=== PATIENT | female | born 1965 | race African-American/Black ===

== ENCOUNTER 2016-12-14 17:41 | Emergency (ER) | payer BC, OTHER ==
[~2016-12-14] VITALS: Ht 167.6 cm; Wt 58.0 kg
[~2016-12-14 17:41] MED LIST: 1-ME1LIQ PO; ALBU6.7H INH; ATOR80TA PO; BACT800T5 PO; BUPR-175 PO; DARU800T PO; FERR324T4 PO; FLON0.053; HIVPAK; HYDR50 PO; LISI-360 PO; MEGE20TA PO; METO10TA PO; NAPR250T57 PO; PENI500T PO; POTA-243 PO; PRED50 PO; PROT40TA PO; REME15TA PO; RITO100 PO; TRUV200300
[2016-12-14 17:44] VITALS: BP 112/64; PULSE 89; RESP 15; TEMP 102.4; O2SAT 98
[2016-12-14 18:06] VITALS: BP 117/62; PULSE 97; RESP 22; O2SAT 99
--- NOTE | 2016-12-14 18:09 | PD ---
HPI Chief Complaint: Fever Time Seen by Provider: 18:01 Travel History International Travel<30 days: No Contact w/Intl Traveler<30days: No Traveled to known affect area: No History of Present Illness HPI Is a 51-year-old male who has a history of HIV with last CD4 count over 600 who presents to the emergency department with 3 days of fever, constant, severe, associated with cough with some clear sputum production. She denies any rhinorrhea, sore throat, body aches, vomiting, diarrhea or abdominal pain. She has no headache or neck pain. She's not had any sick contacts. PFSH Past Medical History Asthma: Yes Blood Disorders: No Anxiety: Yes Depression: Yes Heart Rhythm Problems: No Cancer: No Cardiovascular Problems: Yes (congenital heart murmur) High Cholesterol: Yes Chemotherapy: No Chest Pain: No Congestive Heart Failure: No COPD: No Diabetes: No Diminished Hearing: No Endocrine: Yes (Thyroid Mass) Gastrointestinal Disorders: Yes Genitourinary: Yes Hepatitis: No Hiatal Hernia: No Hypertension: Yes Immune Disorder: Yes (HIV) Musculoskeletal: Yes Neurologic: No Psychiatric: Yes Reproductive: Yes Respiratory: No ( ) Immunizations Current: No Radiation Therapy: No Sleep Apnea: No Thyroid Disease: Yes ( ) ?: Not : 2 Para: 2 Past Surgical History Abdominal Surgery: Yes (TUMOR ON SMALL INTESTINE) AICD: Yes Body Medical Devices: defiblilator Cardiac Surgery: Yes (AICD INSERTION) Endocrine Surgery: Yes (THYROIDECTOMY) Gynecologic Surgery: Yes (HYSTERECTOMY) Hysterectomy: Yes Pacemaker: No Other Surgery: Yes Social History Alcohol Use: No Tobacco Use: No Substance Use: No Allergies-Medications (Allergen,Severity, Reaction): Coded Allergies: Aspirin (Verified Allergy, Intermediate, HIVES, 12/14/16) Reported Meds & Prescriptions Reported Meds & Active Scripts Active Reported Remeron (Mirtazapine) 15 Mg Tab 15 Mg PO HS Atorvastatin (Atorvastatin Calcium) 80 Mg Tab 80 Mg PO HS Lisinopril 10 Mg Tab 10 Mg PO DAILY Prezista (Darunavir) 800 Mg Tab 800 Mg PO DAILY Truvada (Emtricitabine-Tenofovir Disoproxil Fumarate) 200-300 Mg Tab 1 Tab PO DAILY Norvir (Ritonavir) 100 Mg Cap 300 Mg PO DAILY Review of Systems Except as stated in HPI: all other systems reviewed are Neg Physical Exam Narrative GENERAL:Well appearing, no acute distress SKIN: Warm and dry. HEAD: Atraumatic. Normocephalic. EYES: Pupils equal and round. No injection or drainage. ENT: Moist mucous membranes NECK: Trachea midline. No meningismus. CARDIOVASCULAR: Regular rate and rhythm. No murmur appreciated. RESPIRATORY: Clear to auscultation. Breath sounds equal bilaterally. GASTROINTESTINAL: Abdomen soft, non-tender, nondistended. MUSCULOSKELETAL: No obvious deformities. NEUROLOGICAL: Awake and alert. No obvious cranial nerve deficits. Moving all extremities. PSYCHIATRIC: Poor eye contact and flat affect. Data Data Last Documented VS Vital Signs Date Time Temp Pulse Resp B/P Pulse Ox O2 Delivery O2 Flow Rate FiO2 12/14/16 18:06 97 22 117/62 99 Room Air 12/14/16 17:44 102.4 Orders Complete Blood Count With Diff (12/14/16 18:07) Comprehensive Metabolic Panel (12/14/16 18:07) ^ Insert Iv (12/14/16 18:07) Influenzae A/B Antigen (12/14/16 18:07) Chest, Single Ap (12/14/16 ) Urinalysis - C+S If Indicated (12/14/16 18:07) Ketorolac Inj (Toradol Inj) (12/14/16 18:15) Sodium Chlor 0.9% 1000 Ml Inj (Ns 1000 M (12/14/16 18:15) Acetaminophen (Tylenol) (12/14/16 19:00) Labs Laboratory Tests Test 12/14/16 18:20 White Blood Count 5.6 TH/MM3 Red Blood Count 3.98 MIL/MM3 Hemoglobin 12.4 GM/DL Hematocrit 37.5 % Mean Corpuscular Volume 94.2 FL Mean Corpuscular Hemoglobin 31.1 PG Mean Corpuscular Hemoglobin 33.0 % Concent Red Cell Distribution Width 13.9 % Platelet Count 158 TH/MM3 Mean Platelet Volume 9.6 FL Neutrophils (%) (Auto) 60.3 % Lymphocytes (%) (Auto) 27.5 % Monocytes (%) (Auto) 11.6 % Eosinophils (%) (Auto) 0.1 % Basophils (%) (Auto) 0.5 % Neutrophils # (Auto) 3.4 TH/MM3 Lymphocytes # (Auto) 1.6 TH/MM3 Monocytes # (Auto) 0.7 TH/MM3 Eosinophils # (Auto) 0.0 TH/MM3 Basophils # (Auto) 0.0 TH/MM3 CBC Comment DIFF FINAL Differential Comment MDM Medical Decision Making Medical Screen Exam Complete: Yes Emergency Medical Condition: Yes Interpretation(s) Fever of 102.4 No leukocytosis Monocytic shift Influenza positive Chest x-ray: No acute process Differential Diagnosis Influenza, pneumonia, urinary tract infection Narrative Course This is a 51-year-old female who is HIV positive with a CD4 count of 600 presents to the emergency department with fever and cough. She was placed on a monitor and an IV was established. She was given Toradol and acetaminophen as well as IV fluids. Chest x-ray was reassuring with no evidence of pneumonia. Patient had a positive flu test. She will be discharged home with antivirals. Diagnosis Primary Impression: Influenza A Patient Instructions: General Instructions Additional Instructions: If you develop severe chest pain, shortness of breath, sweating, lightheadedness , dizziness or difficulty breathing return to the emergency department immediately. Followup with your primary care physician in 2-3 days if your symptoms are not resolved. Med/Other Pt SpecificInfo: Prescription(s) given Scripts Oseltamivir (Tamiflu)75 Mg Cap75 Mg PO BID 5 Days Ref 0 Prov:Corina Nye MD 12/14/16 Disposition: 01 DISCHARGE HOME Condition: Stable Corina Nye MD Dec 14, 2016 18:09
[2016-12-14] MEDS ORDERED: KETOROLAC TROMETHAMINE 30 MG/ML (IVP) VIAL IV PUSH ONE (18:15)
[2016-12-14] MEDS ORDERED: SODIUM CHLOR 0.9% 1000 ML INJ 1,000 ML IV ONE (18:15)
[2016-12-14 18:36] LABS: AUTOMATED NEUTROPHIL # 3.4 TH/MM3 (1.8-7.7); BASOPHIL % 0.5 % (0.0-2.0); EOSINOPHIL % 0.1 % (0.0-4.0); HEMATOCRIT 37.5 % (35.0-46.0); HEMO FLAGS DIFF FINAL; LYMPH % 27.5 % (9.0-44.0); LYMPHOCYTE # 1.6 TH/MM3 (1.0-4.8); MEAN CELL VOLUME 94.2 FL (80.0-100.0); MEAN CORPUSCULAR HEMOGLOBIN 31.1 PG (27.0-34.0); MONO % 11.6 % (0.0-8.0); NEUT % 60.3 % (16.0-70.0); PLATELET COUNT 158 TH/MM3 (150-450); RED BLOOD COUNT 3.98 MIL/MM3 (4.00-5.30); RED CELL DISTRIBUTION WIDTH 13.9 % (11.6-17.2); WHITE BLOOD COUNT 5.6 TH/MM3 (4.0-11.0)
[2016-12-14] MEDS ORDERED: LISI10TA3 PO (18:37)
[2016-12-14] MEDS ORDERED: DARU800T PO (18:37)
[2016-12-14] MEDS ORDERED: EMTR1TAB PO (18:37)
[2016-12-14] MEDS ORDERED: REME15TA PO (18:37)
[2016-12-14] MEDS ORDERED: ATOR1TAB18 PO (18:37)
[2016-12-14] MEDS ORDERED: RITO100 PO (18:37)
--- NOTE | 2016-12-14 18:39 | RADRPT ---
EXAM DATE/TIME: 12/14/2016 18:18 [facility] COMPARISON: CHEST SINGLE AP, July 15, 2015, 14:25. INDICATIONS : Fever with shortness of breath, cough, and congestion. MEDICAL HISTORY : Asthma. Bronchitis. SURGICAL HISTORY : Pacemaker. ENCOUNTER: Initial ACUITY: 3 days PAIN SCORE: 0/10 LOCATION: Bilateral chest FINDINGS: A single view of the chest demonstrates the lungs to be symmetrically aerated without evidence of mas s, infiltrate or effusion. The cardiomediastinal contours are unremarkable. Osseous structures are intact. Single lead pacer from a left subclavian transvenous approach again noted. CONCLUSION: No acute disease. Ilir Suarez MD on December 14, 2016 at 18:38 Board Certified Radiologist. This report was verified electronically.
[2016-12-14] MEDS ORDERED: ACETAMINOPHEN 500 MG CPLT PO ONE (19:00)
[2016-12-14] MEDS ORDERED: OSEL75 PO (19:04)
[2016-12-14 19:15] VITALS: BP 109/64; PULSE 88; RESP 21; TEMP 100.5; O2SAT 96
[2016-12-14 19:21] LABS: ALKALINE PHOSPHATASE 69 U/L (45-117); ALT (GPT) 16 U/L (10-53); ANION GAP 11 MEQ/L (5-15); AST (GOT) 26 U/L (15-37); BICARBONATE 23.8 MEQ/L (21.0-32.0); BLOOD UREA NITROGEN 13 MG/DL (7-18); CHLORIDE 103 MEQ/L (98-107); GLOMERULAR FILTRATION RATE 50 ML/MIN (>89); POTASSIUM 3.8 MEQ/L (3.5-5.1); SODIUM (NA) 138 MEQ/L (136-145); TOTAL BILIRUBIN ADULT 0.5 MG/DL (0.2-1.0)
== END 2016-12-14 20:24 | disposition home or self-care (01) ==
LOC: NEPA 17:41
DX: J09.X2 Influenza due to identified novel influenza A virus with other respiratory manifestations (principal)
CPT/HCPCS: 71010; 80053; 85025; 87804; 96374; 99283; J1885; J7030

== ENCOUNTER 2017-06-28 16:20 | Emergency (ER) | payer BC ==
[~2017-06-28] VITALS: Ht 170.2 cm; Wt 70.0 kg
[~2017-06-28 16:20] MED LIST changes: -1-ME1LIQ PO; -ALBU6.7H INH; +ATOR1TAB18 PO; -ATOR80TA PO; -BACT800T5 PO; -BUPR-175 PO; +EMTR1TAB PO; -FERR324T4 PO; -FLON0.053; -HIVPAK; -HYDR50 PO; -LISI-360 PO; +LISI10TA3 PO; -MEGE20TA PO; -METO10TA PO; -NAPR250T57 PO; +OSEL75 PO; -PENI500T PO; -POTA-243 PO; -PRED50 PO; -PROT40TA PO; -TRUV200300
[2017-06-28 16:23] VITALS: BP 169/86; PULSE 71; RESP 15; TEMP 99.1; O2SAT 98
--- NOTE | 2017-06-28 16:53 | PD ---
HPI Chief Complaint: Respiratory Symptoms Time Seen by Provider: 16:52 Travel History International Travel<30 days: No Contact w/Intl Traveler<30days: No Traveled to known affect area: No History of Present Illness HPI 52 YO F with PMH of 4 day history of clear rhinorrhea, sinus congestion, nonproductive cough and shortness of breath. Onset gradual. No alleviating or exacerbating factors reported. Patient endorses a "tight sensation" in her chest when she coughs. She endorses chills and malaise. She denies measuring a fever at home. Denies chest pain, palpitations, diaphoresis, nausea, vomiting , abdominal pain or dysuria. No treatment attempted at home. PFSH Past Medical History Asthma: Yes Blood Disorders: No Anxiety: Yes Depression: Yes Heart Rhythm Problems: No Cancer: No Cardiovascular Problems: Yes High Cholesterol: Yes Chemotherapy: No Chest Pain: No Congestive Heart Failure: No COPD: No Diabetes: No Diminished Hearing: No Endocrine: Yes (Thyroid Mass) Gastrointestinal Disorders: Yes Genitourinary: Yes Hepatitis: No Hiatal Hernia: No Hypertension: Yes Immune Disorder: Yes (HIV) Implanted Vascular Access Dvce: Yes Musculoskeletal: Yes Neurologic: No Psychiatric: Yes Reproductive: Yes Respiratory: No ( ) Immunizations Current: No Radiation Therapy: No Sleep Apnea: No Thyroid Disease: Yes ( ) ?: Not : 2 Para: 2 Past Surgical History Abdominal Surgery: Yes (TUMOR ON SMALL INTESTINE) AICD: Yes Body Medical Devices: defiblilator Cardiac Surgery: Yes (AICD INSERTION) Endocrine Surgery: Yes (THYROIDECTOMY) Gynecologic Surgery: Yes Hysterectomy: Yes Pacemaker: No Other Surgery: Yes Social History Alcohol Use: No Tobacco Use: No Substance Use: No Allergies-Medications (Allergen,Severity, Reaction): Coded Allergies: aspirin (Unverified Allergy, Intermediate, HIVES, 06/28/17) Reported Meds & Prescriptions Reported Meds & Active Scripts Active Proair Hfa 8.5 GM Inh (Albuterol Sulfate) 90 Mcg/Act Aer 2 Puff INH Q4-6H PRN 108 mcg/actuation Tessalon Perles (Benzonatate) 100 Mg Cap 200 Mg PO TID PRN Azithromycin 250 Mg Tab 250 Mg PO DIRECTED Take 2 tabs (500 mg) on day 1 then 1 tab daily x 4 days. Tamiflu (Oseltamivir Phosphate) 75 Mg Cap 75 Mg PO BID 5 Days Reported Prozac (Fluoxetine HCl) 10 Mg Cap 10 Mg PO DAILY Remeron (Mirtazapine) 15 Mg Tab 15 Mg PO HS Atorvastatin (Atorvastatin Calcium) 80 Mg Tab 80 Mg PO HS Lisinopril 10 Mg Tab 10 Mg PO DAILY Prezista (Darunavir) 800 Mg Tab 800 Mg PO DAILY Truvada (Emtricitabine-Tenofovir Disoproxil Fumarate) 200-300 Mg Tab 1 Tab PO DAILY Norvir (Ritonavir) 100 Mg Cap 300 Mg PO DAILY Review of Systems Except as stated in HPI: all other systems reviewed are Neg Physical Exam Narrative GENERAL: Well-nourished, well-developed nontoxic-appearing black female in no acute distress. SKIN: Focused skin assessment warm/dry. HEAD: Normocephalic. EYES: No scleral icterus. No injection or drainage. NECK: Supple, trachea midline. No JVD or lymphadenopathy. CARDIOVASCULAR: Regular rate and rhythm without murmurs, gallops, or rubs. RESPIRATORY: Breath sounds clear and equal bilaterally. No accessory muscle use. GASTROINTESTINAL: Abdomen soft, non-tender, nondistended. Active bowel sounds. MUSCULOSKELETAL: No cyanosis, or edema. BACK: Nontender without obvious deformity. No CVA tenderness. Data Data Last Documented VS Vital Signs Date Time Temp Pulse Resp B/P (MAP) Pulse Ox O2 Delivery O2 Flow Rate FiO2 06/28/17 19:22 98.1 78 24 174/83 (113) 98 Room Air Orders Orders Complete Blood Count With Diff (06/28/17 17:03) Comprehensive Metabolic Panel (06/28/17 17:03) B-Type Natriuretic Peptide (06/28/17 17:03) Act Partial Throm Time (Ptt) (06/28/17 17:03) Prothrombin Time / Inr (Pt) (06/28/17 17:03) Ckmb (Isoenzyme) Profile (06/28/17 17:03) Troponin I (06/28/17 17:03) Urinalysis - C+S If Indicated (06/28/17 17:03) Influenzae A/B Antigen (06/28/17 17:03) Iv Access Insert/Monitor (06/28/17 17:03) Electrocardiogram (06/28/17 17:03) Ecg Monitoring (06/28/17 17:03) Oximetry (9/17/17 17:03) Chest, Single Ap (06/28/17 17:03) Sodium Chloride 0.9% Flush (Ns Flush) (06/28/17 17:15) Methylprednisolone So Succ Inj (Solumedr (06/28/17 17:15) Albuterol-Ipratropium Neb (Duoneb Neb) (06/28/17 17:15) Electrocardiogram (06/28/17 17:51) Labs Laboratory Tests Test 06/28/17 17:15 06/28/17 19:20 White Blood Count 5.0 TH/MM3 Red Blood Count 3.82 MIL/MM3 Hemoglobin 11.8 GM/DL Hematocrit 36.5 % Mean Corpuscular Volume 95.7 FL Mean Corpuscular Hemoglobin 30.9 PG Mean Corpuscular Hemoglobin Concent 32.3 % Red Cell Distribution Width 13.7 % Platelet Count 196 TH/MM3 Mean Platelet Volume 8.2 FL Neutrophils (%) (Auto) 42.7 % Lymphocytes (%) (Auto) 46.3 % Monocytes (%) (Auto) 8.3 % Eosinophils (%) (Auto) 2.0 % Basophils (%) (Auto) 0.7 % Neutrophils # (Auto) 2.1 TH/MM3 Lymphocytes # (Auto) 2.3 TH/MM3 Monocytes # (Auto) 0.4 TH/MM3 Eosinophils # (Auto) 0.1 TH/MM3 Basophils # (Auto) 0.0 TH/MM3 CBC Comment DIFF FINAL Differential Comment Prothrombin Time 10.0 SEC Prothromb Time International Ratio 0.9 RATIO Activated Partial Thromboplast Time 26.7 SEC Blood Urea Nitrogen 11 MG/DL Creatinine 1.10 MG/DL Random Glucose 99 MG/DL Total Protein 7.2 GM/DL Albumin 3.5 GM/DL Calcium Level 8.8 MG/DL Alkaline Phosphatase 88 U/L Aspartate Amino Transf (AST/SGOT) 13 U/L Alanine Aminotransferase (ALT/SGPT) 16 U/L Total Bilirubin 0.3 MG/DL Sodium Level 141 MEQ/L Potassium Level 3.7 MEQ/L Chloride Level 108 MEQ/L Carbon Dioxide Level 26.8 MEQ/L Anion Gap 6 MEQ/L Estimat Glomerular Filtration Rate 63 ML/MIN Total Creatine Kinase 62 U/L Troponin I LESS THAN 0.02 NG/ML B-Type Natriuretic Peptide 15 PG/ML Urine Color LIGHT-YELLOW Urine Turbidity CLEAR Urine pH 6.5 Urine Specific [place] 1.008 Urine Protein NEG mg/dL Urine Glucose (UA) NEG mg/dL Urine Ketones NEG mg/dL Urine Occult Blood MOD Urine Nitrite NEG Urine Bilirubin NEG Urine Urobilinogen LESS THAN 2.0 MG/DL Urine Leukocyte Esterase SMALL Urine RBC 1 /hpf Urine WBC 2 /hpf Urine Squamous Epithelial Cells 1 /hpf Urine Amorphous Sediment RARE Microscopic Urinalysis Comment CULT NOT INDICATED MDM Medical Decision Making Medical Screen Exam Complete: Yes Emergency Medical Condition: Yes Differential Diagnosis Viral syndrome versus influenza versus pneumonia versus other Narrative Course 52 YO F with PMH of 4 day history of clear rhinorrhea, sinus congestion, nonproductive cough and shortness of breath. Onset gradual. No alleviating or exacerbating factors reported. Patient endorses a "tight sensation" in her chest when she coughs, chills and malaise. Denies chest pain, palpitations, diaphoresis, nausea, vomiting, abdominal pain or dysuria. Patient is afebrile on presentation. There is no appreciable M/R/G. Chest is CTAB. Abdomen soft and nontender. No lower extremity edema. EKG rate 80, sinus rhythm. RBBB. No acute ST changes. Reviewed by Dr. Levy. Cardiac enzymes: Negative 1. CXR: Trace consolidation in the left lung base. CBC: WBC 5.0. Hemoglobin 11.8. CMP: BUN 11, creatinine 1.1. BNP 115 UA: No culture indicated. This is community-acquired pneumonia. Patient's prescribed azithromycin, Tessalon Perles, pro-air inhaler. She is instructed to take the antibiotics as prescribed, even if the symptoms resolve. She was provided a note for work. She is encouraged to follow up with her primary care provider, Dr. Navas, tomorrow. She indicated understanding of the instructions and is agreeable with the care plan. She is stable and discharged home. Diagnosis Primary Impression: CAP (community acquired pneumonia) Qualified Codes: J18.1 - Lobar pneumonia, unspecified organism Referrals: Primary Care Physician Patient Instructions: Community Acquired Pneumonia (ED), General Instructions Additional Instructions: Rest, hydrate. Take all antibiotics as they are prescribed, even if her symptoms resolve. Continue with inhaler every 4-6 hours as needed for shortness of breath. Follow-up with Dr. Navas tomorrow as discussed. Return to the ED for any urgent or emergent medical condition. Med/Other Pt SpecificInfo: Prescription(s) given Scripts Albuterol 8.5 GM Inh (Proair Hfa 8.5 GM Inh) 90 Mcg/Act Aer 2 PUFF INH Q4-6H Y for SHORTNESS OF BREATH, #1 INHALER 0 Refills 108 mcg/actuation Prov: José Miguel Levy MD 06/28/17 Benzonatate (Tessalon Perles) 100 Mg Cap 200 MG PO TID Y for COUGH, #15 CAP 0 Refills Prov: José Miguel Levy MD 06/28/17 Azithromycin (Azithromycin) 250 Mg Tab 250 MG PO DIRECTED for Infection, #6 TAB 0 Refills Take 2 tabs (500 mg) on day 1 then 1 tab daily x 4 days. Prov: José Miguel Levy MD 06/28/17 Disposition: 01 DISCHARGE HOME Condition: Stable Radha De Luna Jun 28, 2017 16:53
[2017-06-28] MEDS ORDERED: FLUO-1 PO (16:56)
[2017-06-28] MEDS ORDERED: SODIUM CHLORIDE 0.9% FLUSH 10 ML FLUSH IVF PRN (17:15)
[2017-06-28] MEDS ORDERED: methylPREDNISolone SOD SUCC 125 MG/2 ML VIAL IV PUSH ONE (17:15)
[2017-06-28 17:26] LABS: AUTOMATED NEUTROPHIL # 2.1 TH/MM3 (1.8-7.7); BASOPHIL % 0.7 % (0.0-2.0); EOSINOPHIL # 0.1 TH/MM3 (0-0.4); HEMATOCRIT 36.5 % (35.0-46.0); HEMO FLAGS DIFF FINAL; LYMPH % 46.3 % (9.0-44.0); LYMPHOCYTE # 2.3 TH/MM3 (1.0-4.8); MEAN CELL VOLUME 95.7 FL (80.0-100.0); MEAN CORPUSCULAR HEMOGLOBIN 30.9 PG (27.0-34.0); MEAN CORPUSCULAR HGB CONC 32.3 % (32.0-36.0); MONO % 8.3 % (0.0-8.0); NEUT % 42.7 % (16.0-70.0); PLATELET COUNT 196 TH/MM3 (150-450); RED BLOOD COUNT 3.82 MIL/MM3 (4.00-5.30); RED CELL DISTRIBUTION WIDTH 13.7 % (11.6-17.2)
[2017-06-28] MEDS: RESP: ALBUTEROL 2.5 MG/IPRATROPIUM 0.5 MG NEB (SCH) INH (17:28)
[2017-06-28 17:34] LABS: APTT (PATIENT) 26.7 SEC (24.3-30.1); INTERNATIONAL NORMALIZED RATIO 0.9 RATIO
--- NOTE | 2017-06-28 17:38 | RADRPT ---
EXAM DATE/TIME: 06/28/2017 17:13 [facility] COMPARISON: 12/14/2016. INDICATIONS : Short of breath MEDICAL HISTORY : Asthma. Bronchitis. SURGICAL HISTORY : Pacemaker ENCOUNTER: Initial ACUITY: 4 - 6 days PAIN SCORE: 0/10 LOCATION: chest FINDINGS: Slight infiltrate of the left lung base. Right lung is clear. No large effusions. No pneumothorax. Heart size stable, upper limits of normal. Cardiac pacer/defibrillator again noted. CONCLUSION: Trace consolidation of the left lung base. Dominic Head MD on June 28, 2017 at 17:36 Board Certified Radiologist. This report was verified electronically.
[2017-06-28 17:41] LABS: ALT (GPT) 16 U/L (10-53); ANION GAP 6 MEQ/L (5-15); AST (GOT) 13 U/L (15-37); BICARBONATE 26.8 MEQ/L (21.0-32.0); BLOOD UREA NITROGEN 11 MG/DL (7-18); CHLORIDE 108 MEQ/L (98-107); GLOMERULAR FILTRATION RATE 63 ML/MIN (>89); POTASSIUM 3.7 MEQ/L (3.5-5.1); SODIUM (NA) 141 MEQ/L (136-145)
[2017-06-28 17:45] LABS: ALKALINE PHOSPHATASE 88 U/L (45-117); TOTAL BILIRUBIN ADULT 0.3 MG/DL (0.2-1.0)
[2017-06-28 18:00] LABS: CREATINE KINASE 62 U/L (26-192)
[2017-06-28 19:22] VITALS: BP 174/83; PULSE 78; RESP 24; TEMP 98.1; O2SAT 98
[2017-06-28] MEDS ORDERED: ALBUAER3 INH (19:34)
[2017-06-28] MEDS ORDERED: AZIT250T3 PO (19:34)
[2017-06-28] MEDS ORDERED: BENZ100 PO (19:34)
[2017-06-28 19:39] LABS: BLOOD, URINE MOD (NEG); COMMENT (UR) CULT NOT INDICATED; CULTURE IF INDICATED CULT NOT INDICATED; GLUCOSE,URINE NEG (NEG); KETONE, URINE NEG (NEG); NITRITE,URINE NEG (NEG); PH, URINE 6.5 (5.0-8.5); SQUAMOUS EPITHELIAL CELL URINE 1 /hpf (0-5); URINE COLOR LIGHT-YELLOW (YELLW/STRAW)
--- NOTE | 2017-06-28 21:46 | EKG ---
Date Performed: 06/28/2017 Time Performed: 17:51:49 PTAGE: 52 years EKG: Sinus rhythm RIGHT BUNDLE BRANCH BLOCK MINIMAL VOLTAGE CRITERIA FOR LVH, CONSIDER NORMAL VARIANT ABNORMAL ECG PREVIOUS TRACING : 06/28/2017 17.51 No significant change from previous tracing noted. DOCTOR: Rajeev Hendrickson Interpretating Date/Time 06/28/2017 21:45:29
--- NOTE | 2017-06-28 21:47 | EKG ---
Date Performed: 06/28/2017 Time Performed: 17:51:13 PTAGE: 52 years EKG: Sinus rhythm RIGHT BUNDLE BRANCH BLOCK MINIMAL VOLTAGE CRITERIA FOR LVH, CONSIDER NORMAL VARIANT ANTERIOR T WAVE ABNORMALITY, CONSIDER ISCHEMIA ABNORMAL ECG PREVIOUS TRACING : 07/16/2015 02.18 No significant change from previous tracing noted. DOCTOR: Rajeev Hendrickson Interpretating Date/Time 06/29/2017 07:18:25
== END 2017-06-28 20:20 | disposition home or self-care (01) ==
LOC: NEPE 16:20
DX: J18.1 Lobar pneumonia, unspecified organism (principal); R94.31 Abnormal electrocardiogram [ECG] [EKG]; J45.909 Unspecified asthma, uncomplicated; I10 Essential (primary) hypertension; B20 Human immunodeficiency virus [HIV] disease
CPT/HCPCS: 71010; 80053; 81001; 82550; 83880; 84484; 85025; 85610; 85730; 87804; 93005; 94664; 96374; 99285; J2930

== ENCOUNTER 2017-11-26 15:08 | Emergency (ER) | payer BC ==
[~2017-11-26] VITALS: Ht 168.9 cm; Wt 174.0 kg
[~2017-11-26 15:08] MED LIST changes: +ALBUAER3 INH; -ATOR1TAB18 PO; +ATOR80TA45 PO; +AZIT250T3 PO; +BENZ100 PO; -DARU800T PO; +DARU800T2 PO; -EMTR1TAB PO; +FLUO-1 PO; +TRUV200300 PO
[2017-11-26 15:10] VITALS: BP 118/70; PULSE 80; RESP 18; TEMP 98.3; O2SAT 100
--- NOTE | 2017-11-26 16:38 | RADRPT ---
EXAM DATE/TIME: 11/26/2017 16:02 [facility] COMPARISON: CHEST SINGLE AP, June 28, 2017, 17:13. INDICATIONS : Short of breath and swelling. MEDICAL HISTORY : asthma. SURGICAL HISTORY : Pacemaker. ENCOUNTER: Initial ACUITY: 3 weeks PAIN SCORE: 0/10 LOCATION: Bilateral chest FINDINGS: PA and lateral views of the chest demonstrate the lungs to be symmetrically aerated without evidence of mass, infiltrate or effusion. Stable single lead AICD device. The cardiomediastinal contours are unremarkable. Osseous structures are intact. CONCLUSION: No acute cardiopulmonary disease. Dario Boswell MD on November 26, 2017 at 16:36 Board Certified Radiologist. This report was verified electronically.
[2017-11-26 18:00] VITALS: BP 117/70; PULSE 80; RESP 18; O2SAT 99
--- NOTE | 2017-11-26 18:07 | PD ---
HPI Chief Complaint: Edema Time Seen by Provider: 18:06 Travel History International Travel<30 days: No Contact w/Intl Traveler<30days: No Traveled to known affect area: No History of Present Illness HPI 52-year-old female with history of CAD, AICD placement, HIV unknown CD4 count, presents emergency department for evaluation of lower extremity edema. 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 Benson, today. They sent her to emergency department for evaluation due to a 17 pound weight gain since her last visit and lower extremity edema with some increased growth around the abdomen. Patient states she has been experiencing some mild short of breath with activity area denies any chest pain or tightness. Denies any recent illnesses, fever, chills. Denies any focal deficits or weakness. No other symptoms to report. PFSH Past Medical History Asthma: Yes Blood Disorders: No Anxiety: Yes Depression: Yes Heart Rhythm Problems: No Cancer: No Cardiovascular Problems: Yes High Cholesterol: Yes Chemotherapy: No Chest Pain: No Congestive Heart Failure: No COPD: No Diabetes: No Diminished Hearing: No Endocrine: Yes (Thyroid Mass) Gastrointestinal Disorders: Yes Genitourinary: Yes Hepatitis: No Hiatal Hernia: No Hypertension: Yes Immune Disorder: Yes (HIV) Implanted Vascular Access Dvce: Yes Musculoskeletal: Yes Neurologic: No Psychiatric: Yes Reproductive: Yes Immunizations Current: No Radiation Therapy: No Sleep Apnea: No Thyroid Disease: Yes ( ) : 2 Para: 2 Past Surgical History Abdominal Surgery: Yes (TUMOR ON SMALL INTESTINE) AICD: Yes Body Medical Devices: defiblilator Cardiac Surgery: Yes (AICD INSERTION) Endocrine Surgery: Yes (THYROIDECTOMY) Gynecologic Surgery: Yes Hysterectomy: Yes Pacemaker: No Other Surgery: Yes Social History Alcohol Use: No Tobacco Use: No Substance Use: No Allergies-Medications (Allergen,Severity, Reaction): Coded Allergies: aspirin (Unverified Allergy, Intermediate, HIVES, 11/26/17) Reported Meds & Prescriptions Reported Meds & Active Scripts Active Proair Hfa 8.5 GM Inh (Albuterol Sulfate) 90 Mcg/Act Aer 2 Puff INH Q4-6H PRN 108 mcg/actuation Tessalon Perles (Benzonatate) 100 Mg Cap 200 Mg PO TID PRN Azithromycin 250 Mg Tab 250 Mg PO DIRECTED Take 2 tabs (500 mg) on day 1 then 1 tab daily x 4 days. Tamiflu (Oseltamivir Phosphate) 75 Mg Cap 75 Mg PO BID 5 Days Reported Prozac (Fluoxetine HCl) 10 Mg Cap 10 Mg PO DAILY Remeron (Mirtazapine) 15 Mg Tab 15 Mg PO HS Atorvastatin (Atorvastatin Calcium) 80 Mg Tab 80 Mg PO HS Lisinopril 10 Mg Tab 10 Mg PO DAILY Prezista (Darunavir) 800 Mg Tab 800 Mg PO DAILY Truvada (Emtricitabine-Tenofovir Disoproxil Fumarate) 200-300 Mg Tab 1 Tab PO DAILY Norvir (Ritonavir) 100 Mg Cap 300 Mg PO DAILY Review of Systems Except as stated in HPI: all other systems reviewed are Neg Physical Exam Narrative GENERAL: Well-nourished female patient, in no acute distress. SKIN: Focused skin assessment warm/dry. HEAD: Atraumatic. Normocephalic. EYES: Pupils equal and round. No scleral icterus. No injection or drainage. ENT: No nasal bleeding or discharge. Mucous membranes pink and moist. NECK: Trachea midline. No JVD. CARDIOVASCULAR: Regular rate and rhythm. No murmur appreciated. RESPIRATORY: No accessory muscle use. Clear to auscultation, diminished bases. Breath sounds equal bilaterally. GASTROINTESTINAL: Abdomen soft, non-tender, nondistended. Hepatic and splenic margins not palpable. MUSCULOSKELETAL: No obvious deformities. No clubbing. No cyanosis. 2+ bilateral lower extremity edema. Distal pulses are palpable. Cap refill within normal limits. NEUROLOGICAL: Awake and alert. No obvious cranial nerve deficits. Motor grossly within normal limits. Normal speech. PSYCHIATRIC: Appropriate mood and affect; insight and judgment normal. Data Data Last Documented VS Vital Signs Date Time Temp Pulse Resp B/P (MAP) Pulse Ox O2 Delivery O2 Flow Rate FiO2 11/26/17 21:33 88 14 111/64 (80) 100 11/26/17 20:00 Room Air 11/26/17 15:10 98.3 Orders Orders Electrocardiogram (11/26/17 15:45) Complete Blood Count With Diff (11/26/17 15:45) Basic Metabolic Panel (Bmp) (11/26/17 15:45) Ckmb (Isoenzyme) Profile (11/26/17 15:45) Troponin I (11/26/17 15:45) Chest, Pa & Lat (11/26/17 15:45) Urinalysis - C+S If Indicated (11/26/17 17:50) B-Type Natriuretic Peptide (11/26/17 18:10) CKMB (11/26/17 18:15) CKMB% (11/26/17 18:15) Orthostatic Vital Signs (11/26/17 20:41) Ed Discharge Order (11/26/17 20:46) Labs Laboratory Tests Test 11/26/17 15:55 11/26/17 18:15 Urine Color YELLOW Urine Turbidity HAZY Urine pH 5.5 Urine Specific [place] 1.015 Urine Protein NEG mg/dL Urine Glucose (UA) NEG mg/dL Urine Ketones NEG mg/dL Urine Occult Blood SMALL Urine Nitrite NEG Urine Bilirubin NEG Urine Urobilinogen LESS THAN 2.0 MG/DL Urine Leukocyte Esterase SMALL Urine RBC 4 /hpf Urine WBC 3 /hpf Urine Squamous Epithelial Cells 2 /hpf Urine Calcium Oxalate Crystals MOD /hpf Urine Bacteria RARE /hpf Urine Hyaline Casts 3 /lpf Urine Mucus FEW /lpf Microscopic Urinalysis Comment CULT NOT INDICATED White Blood Count 7.2 TH/MM3 Red Blood Count 3.78 MIL/MM3 Hemoglobin 11.9 GM/DL Hematocrit 34.7 % Mean Corpuscular Volume 92.0 FL Mean Corpuscular Hemoglobin 31.6 PG Mean Corpuscular Hemoglobin Concent 34.4 % Red Cell Distribution Width 13.9 % Platelet Count 243 TH/MM3 Mean Platelet Volume 8.1 FL Neutrophils (%) (Auto) 59.7 % Lymphocytes (%) (Auto) 31.3 % Monocytes (%) (Auto) 5.5 % Eosinophils (%) (Auto) 3.0 % Basophils (%) (Auto) 0.5 % Neutrophils # (Auto) 4.3 TH/MM3 Lymphocytes # (Auto) 2.3 TH/MM3 Monocytes # (Auto) 0.4 TH/MM3 Eosinophils # (Auto) 0.2 TH/MM3 Basophils # (Auto) 0.0 TH/MM3 CBC Comment DIFF FINAL Differential Comment Blood Urea Nitrogen 16 MG/DL Creatinine 1.09 MG/DL Random Glucose 110 MG/DL Calcium Level 8.8 MG/DL Sodium Level 140 MEQ/L Potassium Level 3.2 MEQ/L Chloride Level 106 MEQ/L Carbon Dioxide Level 26.2 MEQ/L Anion Gap 8 MEQ/L Estimat Glomerular Filtration Rate 64 ML/MIN Total Creatine Kinase 128 U/L Creatine Kinase MB 0.8 NG/ML Troponin I LESS THAN 0.02 NG/ML B-Type Natriuretic Peptide 9 PG/ML MDM Medical Decision Making Medical Screen Exam Complete: Yes Emergency Medical Condition: Yes Medical Record Reviewed: Yes Differential Diagnosis Acute onset CHF versus dependent edema versus electrode abnormality Narrative Course 52-year-old female presents to emergency department for evaluation of lower extremity edema. Patient appears without distress. She has no other complaints except for the lower extremity edema and some shortness of breath with activity. Her daughters are at bedside and states that she appears herself and has been acting herself except for the swelling. Laboratory Tests Test 11/26/17 15:55 11/26/17 18:15 Urine Color YELLOW Urine Turbidity HAZY Urine pH 5.5 Urine Specific [place] 1.015 Urine Protein NEG mg/dL Urine Glucose (UA) NEG mg/dL Urine Ketones NEG mg/dL Urine Occult Blood SMALL Urine Nitrite NEG Urine Bilirubin NEG Urine Urobilinogen LESS THAN 2.0 MG/DL Urine Leukocyte Esterase SMALL Urine RBC 4 /hpf Urine WBC 3 /hpf Urine Squamous Epithelial Cells 2 /hpf Urine Calcium Oxalate Crystals MOD /hpf Urine Bacteria RARE /hpf Urine Hyaline Casts 3 /lpf Urine Mucus FEW /lpf Microscopic Urinalysis Comment CULT NOT INDICATED White Blood Count 7.2 TH/MM3 Red Blood Count 3.78 MIL/MM3 Hemoglobin 11.9 GM/DL Hematocrit 34.7 % Mean Corpuscular Volume 92.0 FL Mean Corpuscular Hemoglobin 31.6 PG Mean Corpuscular Hemoglobin Concent 34.4 % Red Cell Distribution Width 13.9 % Platelet Count 243 TH/MM3 Mean Platelet Volume 8.1 FL Neutrophils (%) (Auto) 59.7 % Lymphocytes (%) (Auto) 31.3 % Monocytes (%) (Auto) 5.5 % Eosinophils (%) (Auto) 3.0 % Basophils (%) (Auto) 0.5 % Neutrophils # (Auto) 4.3 TH/MM3 Lymphocytes # (Auto) 2.3 TH/MM3 Monocytes # (Auto) 0.4 TH/MM3 Eosinophils # (Auto) 0.2 TH/MM3 Basophils # (Auto) 0.0 TH/MM3 CBC Comment DIFF FINAL Differential Comment Blood Urea Nitrogen 16 MG/DL Creatinine 1.09 MG/DL Random Glucose 110 MG/DL Calcium Level 8.8 MG/DL Sodium Level 140 MEQ/L Potassium Level 3.2 MEQ/L Chloride Level 106 MEQ/L Carbon Dioxide Level 26.2 MEQ/L Anion Gap 8 MEQ/L Estimat Glomerular Filtration Rate 64 ML/MIN Total Creatine Kinase 128 U/L Creatine Kinase MB 0.8 NG/ML Troponin I LESS THAN 0.02 NG/ML B-Type Natriuretic Peptide 9 PG/ML Last Impressions Chest X-Ray 11/26/17 1545 Signed Impressions: Service Date/Time: November 16:02 - CONCLUSION: No acute cardiopulmonary disease. Dario Boswell MD Lab work and radiology studies are reviewed. Patient does have some renal insufficiency, this is not new for her. Discussed the patient my attending physician. Patient wants to go home. There is no emergent need to keep her at this time. I advised her to follow-up with her primary care provider and return immediately with any acute worsening symptoms. Diagnosis Primary Impression: Bilateral lower extremity edema Referrals: [employer] Operator Primary Care Physician Patient Instructions: Edema (ED), General Instructions Additional Instructions: Elevated lower extremities Avoid salt and high sodium Return immediately to the emergency department with any acute worsening symptoms Med/Other Pt SpecificInfo: No Change to Meds Disposition: 01 DISCHARGE HOME Condition: Stable Haylie Lynn Nov 26, 2017 18:07
[2017-11-26 18:33] LABS: AUTOMATED NEUTROPHIL # 4.3 TH/MM3 (1.8-7.7); BASOPHIL % 0.5 % (0.0-2.0); EOSINOPHIL # 0.2 TH/MM3 (0-0.4); HEMATOCRIT 34.7 % (35.0-46.0); HEMOGLOBIN 11.9 GM/DL (11.6-15.3); LYMPH % 31.3 % (9.0-44.0); LYMPHOCYTE # 2.3 TH/MM3 (1.0-4.8); MEAN CORPUSCULAR HEMOGLOBIN 31.6 PG (27.0-34.0); MEAN CORPUSCULAR HGB CONC 34.4 % (32.0-36.0); MEAN PLATELET VOLUME 8.1 FL (7.0-11.0); MONO % 5.5 % (0.0-8.0); MONOCYTE # 0.4 TH/MM3 (0-0.9); NEUT % 59.7 % (16.0-70.0); PLATELET COUNT 243 TH/MM3 (150-450); RED BLOOD COUNT 3.78 MIL/MM3 (4.00-5.30); RED CELL DISTRIBUTION WIDTH 13.9 % (11.6-17.2); WHITE BLOOD COUNT 7.2 TH/MM3 (4.0-11.0)
[2017-11-26 18:42] LABS: BACTERIA, URINE RARE /hpf; BILIRUBIN, URINE NEG (NEG); BLOOD, URINE SMALL (NEG); CALCIUM OXALATE CRYSTALS,URINE MOD /hpf; GLUCOSE,URINE NEG (NEG); HYALINE CAST, URINE 3 /lpf (RARE); KETONE, URINE NEG (NEG); MUCUS URINE FEW /lpf (OCC); NITRITE,URINE NEG (NEG); PH, URINE 5.5 (5.0-8.5); SQUAMOUS EPITHELIAL CELL URINE 2 /hpf (0-5); URINE COLOR YELLOW (YELLW/STRAW); URINE LEUKOCYTE ESTERASE SMALL (NEG)
[2017-11-26 18:58] LABS: BICARBONATE 26.2 MEQ/L (21.0-32.0); BLOOD UREA NITROGEN 16 MG/DL (7-18); CALCIUM 8.8 MG/DL (8.5-10.1); CHLORIDE 106 MEQ/L (98-107); CREATININE 1.09 MG/DL (0.50-1.00); GLOMERULAR FILTRATION RATE 64 ML/MIN (>89); GLUCOSE,RANDOM 110 MG/DL (74-106); SODIUM (NA) 140 MEQ/L (136-145)
[2017-11-26 19:02] LABS: TROPONIN I LESS THAN 0.02 NG/ML (0.02-0.05)
--- NOTE | 2017-11-26 19:04 | PD ---
Physical Exam Date Seen by Provider: Nov 26, 2017 Time Seen by Provider: 18:30 Narrative I, Dr. Burnett, have reviewed the advance practice practitioner's documentation and am in agreement, met with the patient face to face, made the diagnosis, and the medical decision making was done by me. *My assessment and Findings: Patient seen and evaluated with nurse practitioner , please see practitioner note for further details. 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 Her blood pressures on the low side and they were worried about initiating diuretics without lab work. They sent her in for further evaluation. On exam, she has decreased breath sounds at the bases. Her legs do appear somewhat edematous. EKG did not show any signs of acute ST changes. It is in normal sinus rhythm at a rate of 80 bpm. Laboratory Tests Test 11/26/17 15:55 11/26/17 18:15 Urine Turbidity HAZY (CLEAR) Urine Occult Blood SMALL (NEG) Urine Leukocyte Esterase SMALL (NEG) Urine RBC 4 /hpf (0-3) Urine Calcium Oxalate Crystals MOD /hpf (NONE) Urine Bacteria RARE /hpf (NONE) Urine Mucus FEW /lpf (OCC) Red Blood Count 3.78 MIL/MM3 (4.00-5.30) Hematocrit 34.7 % (35.0-46.0) Creatinine 1.09 MG/DL (0.50-1.00) Random Glucose 110 MG/DL (74-106) Potassium Level 3.2 MEQ/L (3.5-5.1) Estimat Glomerular Filtration Rate 64 ML/MIN (>89) Troponin I LESS THAN 0.02 NG/ML Last 24 hours Impressions Chest X-Ray 11/26/17 2424 Signed Impressions: Service Date/Time: November 16:02 - CONCLUSION: No acute cardiopulmonary disease. Dario Boswell MD Patient does not appear to have history of CHF in the past, would likely need diuretics Blood pressure remains low in the ER. Planning to admit for further treatment of new onset CHF. Data Data Last Documented VS Vital Signs Date Time Temp Pulse Resp B/P (MAP) Pulse Ox O2 Delivery O2 Flow Rate FiO2 11/26/17 18:02 87 100 Room Air 11/26/17 15:10 98.3 18 118/70 (86) Orders Orders Electrocardiogram (11/26/17 15:45) Complete Blood Count With Diff (11/26/17 15:45) Basic Metabolic Panel (Bmp) (11/26/17 15:45) Ckmb (Isoenzyme) Profile (11/26/17 15:45) Troponin I (11/26/17 15:45) Chest, Pa & Lat (11/26/17 15:45) Urinalysis - C+S If Indicated (11/26/17 17:50) B-Type Natriuretic Peptide (11/26/17 18:10) Labs Laboratory Tests Test 11/26/17 15:55 11/26/17 18:15 Urine Color YELLOW Urine Turbidity HAZY Urine pH 5.5 Urine Specific [place] 1.015 Urine Protein NEG mg/dL Urine Glucose (UA) NEG mg/dL Urine Ketones NEG mg/dL Urine Occult Blood SMALL Urine Nitrite NEG Urine Bilirubin NEG Urine Urobilinogen LESS THAN 2.0 MG/DL Urine Leukocyte Esterase SMALL Urine RBC 4 /hpf Urine WBC 3 /hpf Urine Squamous Epithelial Cells 2 /hpf Urine Calcium Oxalate Crystals MOD /hpf Urine Bacteria RARE /hpf Urine Hyaline Casts 3 /lpf Urine Mucus FEW /lpf Microscopic Urinalysis Comment CULT NOT INDICATED White Blood Count 7.2 TH/MM3 Red Blood Count 3.78 MIL/MM3 Hemoglobin 11.9 GM/DL Hematocrit 34.7 % Mean Corpuscular Volume 92.0 FL Mean Corpuscular Hemoglobin 31.6 PG Mean Corpuscular Hemoglobin Concent 34.4 % Red Cell Distribution Width 13.9 % Platelet Count 243 TH/MM3 Mean Platelet Volume 8.1 FL Neutrophils (%) (Auto) 59.7 % Lymphocytes (%) (Auto) 31.3 % Monocytes (%) (Auto) 5.5 % Eosinophils (%) (Auto) 3.0 % Basophils (%) (Auto) 0.5 % Neutrophils # (Auto) 4.3 TH/MM3 Lymphocytes # (Auto) 2.3 TH/MM3 Monocytes # (Auto) 0.4 TH/MM3 Eosinophils # (Auto) 0.2 TH/MM3 Basophils # (Auto) 0.0 TH/MM3 CBC Comment DIFF FINAL Differential Comment Blood Urea Nitrogen 16 MG/DL Creatinine 1.09 MG/DL Random Glucose 110 MG/DL Calcium Level 8.8 MG/DL Sodium Level 140 MEQ/L Potassium Level 3.2 MEQ/L Chloride Level 106 MEQ/L Carbon Dioxide Level 26.2 MEQ/L Anion Gap 8 MEQ/L Estimat Glomerular Filtration Rate 64 ML/MIN [facility] Medical Record Reviewed: Yes Supervised Visit with JAMES: Yes Diagnosis Primary Impression: Leg swelling Marlys Burnett MD Nov 26, 2017 19:04
[2017-11-26 20:00] VITALS: BP 111/67; PULSE 79; RESP 16; O2SAT 99
[2017-11-26 21:33] VITALS: BP 111/64
--- NOTE | 2017-11-28 00:34 | EKG ---
Date Performed: 11/26/2017 Time Performed: 18:17:18 PTAGE: 52 years EKG: Sinus rhythm RIGHT BUNDLE BRANCH BLOCK ABNORMAL ECG PREVIOUS TRACING : 06/28/2017 17.51 Since the prior tracing, there has been no significant aguiar DOCTOR: Clifford Min Interpretating Date/Time 11/28/2017 00:34:02
== END 2017-11-26 21:37 | disposition home or self-care (01) ==
LOC: NEPC 15:08
DX: R60.0 Localized edema (principal); M79.89 Other specified soft tissue disorders; I45.10 Unspecified right bundle-branch block; N28.9 Disorder of kidney and ureter, unspecified; E78.00 Pure hypercholesterolemia, unspecified; F32.9 Major depressive disorder, single episode, unspecified; I10 Essential (primary) hypertension; I25.10 Atherosclerotic heart disease of native coronary artery without angina pectoris; J45.909 Unspecified asthma, uncomplicated; Z95.810 Presence of automatic (implantable) cardiac defibrillator; Z21 Asymptomatic human immunodeficiency virus [HIV] infection status
CPT/HCPCS: 71046; 80048; 81001; 82550; 82552; 83880; 84484; 85025; 93005